=== PATIENT | female | born 1995 | race African-American/Black ===

== ENCOUNTER 2022-01-05 12:42 | Emergency (ER) | payer OTHER, SELFPAY ==
[2022-01-05 12:47] VITALS: BP 122/89; PULSE 73; RESP 18; TEMP 36.3; O2SAT 100
--- NOTE | 2022-01-05 13:05 | ECG_ITS ---
Measurements Intervals [place] Rate: 60 P: 49 OH: 171 QRS: 34 QRSD: 100 T: 17 QT: 413 QTc: 414 Interpretive Statements SINUS RHYTHM POSSIBLE RIGHT VENTRICULAR CONDUCTION DELAY [RSR (QR) IN V1/V2] NONSPECIFIC T-WAVE ABNORMALITY ABNORMAL ECG NO PREVIOUS ECG AVAILABLE FOR COMPARISON Electronically Signed On 01-06-2022 11:11:58 CDT by Branden Orourke M.D.
--- NOTE | 2022-01-05 13:20 | ED.DIZZY ---
HPI - Dizziness General Chief Complaint: Dizziness Stated Complaint: lightheaded Time Seen by Provider: 01/05/22 12:54 Source: patient History of Present Illness HPI Narrative: Patient presents with intermittent lightheadedness. She reports she first noticed her symptoms approximately 1 year ago had symptoms for couple days then resolved. Her symptoms have returned over the past few days. She mostly notes it when she is driving. She reports she recently saw the tenterer because she was having some blurry vision and was given a new prescription for glasses which has alleviated her symptoms to some degree but she gets some irritation around the bridge of her nose unsure if that was related to her lightheadedness. She currently feels lightheaded denies any chest pain or shortness of breath she denies any syncopal episodes she denies any significant family history of sudden cardiac . Denies any recent fevers, cough, congestion, nausea, diarrhea. Spouse reports her symptoms were relieved when she started taking vitamin B Related Data Allergies Allergy/AdvReac Type Severity Reaction Status Date / Time No Known Allergies Allergy Unverified 01/05/22 12:53 Review of Systems Review of Systems: CONSTITUTIONAL: Denies fever, chills, or sweats. EYES: Denies visual changes, redness, or discharge. ENT: Denies rhinorrhea, congestion, sore throat, or otalgia. CARDIOVASCULAR: Denies chest pain, palpitations, or edema. RESPIRATORY: Denies cough or dyspnea. GASTROINTESTINAL: Denies abdominal pain, nausea, vomiting, or diarrhea. GENITOURINARY: Denies dysuria or hematuria. SKIN: Denies rash or itching. MUSCULOSKELETAL: Denies back pain, joint pain, or myalgia. NEUROLOGIC: Denies headache, numbness, or weakness. PSYCHIATRIC: Denies anxiety or depression. All systems reviewed & are unremarkable except as noted in HPI and below PMFSH Past Medical History Medical History (Updated 01/05/22 @ 14:06 by Wesley Anderson MD) Patient denies medical problems Exam Narrative: GENERAL: Well-appearing, well-nourished, and in no acute distress. HEAD: Normocephalic, atraumatic. EYES: PERRLA and EOMI. ENT: Nares clear, no rhinorrhea or epistaxis. Mucous membranes moist. NECK: Supple. No masses. No JVD CHEST: Clear to auscultation. No respiratory distress. No wheezes rales or rhonchi HEART: Regular rate and rhythm. No murmur heard. Normal peripheral pulses. ABDOMEN: Soft, nontender, nondistended, normal active bowel sounds. EXTREMITIES: Normal range of motion. No edema. SKIN: Warm, dry, no rash. NEURO: Cranial nerves II through XII are intact patient has 5-5 strength in all extremities sensation intact light touch in all extremities alert and oriented x3. PSYCH: Normal mood and affect. Course Reevaluation(s) Reevaluation #1: Patient resting comfortably results and plan reviewed with patient. Patient is comfortable outpatient plan. Date: 01/05/22 Vital Signs Vital signs: Vital Signs Temperature 36.3 C L 01/05/22 12:47 Pulse Rate 73 01/05/22 12:47 Respiratory Rate 18 01/05/22 12:47 Blood Pressure 122/89 01/05/22 12:47 Pulse Oximetry 100 01/05/22 12:47 Temperature 36.3 C L 01/05/22 12:47 Pulse Rate 73 01/05/22 12:47 Respiratory Rate 18 01/05/22 12:47 Blood Pressure 122/89 01/05/22 12:47 Pulse Oximetry 100 01/05/22 12:47 MDM - Dizziness MDM Narrative Medical decision making narrative: H&P as above, vss, pt looks clinically well, exam without focal neurological deficits, labs with mild anemia otherwise clinically unremarkable, EKG without acute process, additional labs/img considered, symptomatic relief available as needed, on reevaluation pt continues to looks clinically well. Symptoms may be related to poor eyeglass prescription as she feels prescription is slightly off but has had some relief because her vision is somewhat better, dns intracranial hemorrhage, meningitis, electrolyte abnormality, ischemi
[2022-01-05 13:24] LABS: Basophils Percent Auto 0.4 % (0.2-1.2); Eosinophils Absolute Auto 0.1 K/mm3 (0-0.3); Hematocrit 34.7 % (37.0-47.0); Hemoglobin 10.9 g/dL (12.0-15.0); Immature Granulocyte Absolute 0.01 K/mm3 (0.00-0.031); Immature Granulocyte Percent A 0.2 % (0-0.5); Lymphocytes Absolute Auto 1.24 K/mm3 (0.9-3.2); Lymphocytes Percent Auto 24.3 % (18.3-44.2); Mean Corpuscular HGB Conc 31.4 g/dl (32-36); Mean Corpuscular Hemoglobin 27.9 pg (26-34); Mean Corpuscular Volume 88.7 fl (80-100); Mean Platelet Volume 11.4 fl (7.4-10.4); Monocytes Absolute Auto 0.4 K/mm3 (0.1-0.6); Monocytes Percent Auto 8.6 % (2.6-8.5); Neutrophils Absolute Auto 3.4 K/mm3 (1.3-6.7); Neutrophils Percent Auto 65.5 % (45.5-73.1); Platelet Count Result 175 k/mm3 (150-375); Red Blood Count 3.91 M/mm3 (4.2-5.4); Red Cell Distribution Width 12.7 % (11.5-14.5); White Blood Count 5.1 K/mm3 (4.5-10.0)
[2022-01-05 13:34] LABS: Alanine Aminotransferase 16 U/L (4-35); Albumin Level 4.2 g/dL (3.5-5.1); Alkaline Phosphatase 64 U/L (38-126); Anion Gap 4 mmol/L (8-16); Aspartate Amino Transferase 28 U/L (14-36); Bilirubin,Total 0.6 mg/dL (0.2-1.3); Blood Urea Nitrogen 7 mg/dL (7-17); Calcium 8.8 mg/dL (8.4-10.2); Carbon Dioxide 28 mmol/L (22-30); Chloride 105 mmol/L (98-107); Estimated CRCL calculation 116 ml/min; Estimated Glomerular Filt Rate > 60; Glucose 83 mg/dL (65-110); Potassium 3.8 mmol/L (3.4-5.0); Sodium 137 mmol/L (137-145)
[2022-01-05 14:39] LABS: Appearance Urine Clear (Clear); Bilirubin Urine Negative (Negative); Blood Urine Negative (Negative); Color Urine Yellow (Yellow); Glucose Urine UA Negative (Negative); Ketones Urine Negative (Negative); Leukocyte Esterase Ur Negative LEU/UL (Negative); Nitrate Urine Negative (Negative); Protein Urine Negative (Negative); Urobilinogen Urine 0.2 mg/dL (<2.0)
--- NOTE | 2022-01-05 14:42 | PC.NURSE ---
PT left prior to getting discharge paperwork.
[2022-01-05 14:48] LABS: RBC Urine 0-2 /hpf (0-2); Squamous Epithelial Cell Urine Rare /hpf (Few)
[2022-01-05 14:49] LABS: Add Urine Microscopic? YES
== END 2022-01-05 14:45 | disposition home or self-care (01) ==
PROVIDERS: Emergency Provider Emergency Medicine; PCP Internal Medicine Infectious Disease
DX: R42 Dizziness and giddiness (principal); R94.31 Abnormal electrocardiogram [ECG] [EKG]
CPT/HCPCS: 36415; 80053; 81001; 81025; 85025; 93005; 99283

== ENCOUNTER 2024-01-08 13:55 | Emergency (ER) | payer OTHER, SELFPAY ==
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
== END 2024-01-08 15:18 | disposition home or self-care (01) ==
LOC: ANHED 14:55
PROVIDERS: Emergency Provider Nurse Practitioner Family; PCP Internal Medicine Infectious Disease
DX: S13.9XXA Sprain of joints and ligaments of unspecified parts of neck, initial encounter (principal); V49.40XA Driver injured in collision with unspecified motor vehicles in traffic accident, initial encounter
CPT/HCPCS: 72040; 99283

== ENCOUNTER 2024-06-24 14:54 | Emergency (ER) | payer OTHER, SELFPAY ==
[2024-06-24 15:00] VITALS: BP 116/70; PULSE 71; RESP 20; TEMP 36.4; O2SAT 100
--- NOTE | 2024-06-24 15:03 | ED.DENTAL ---
HPI - Dental/Oral General Chief complaint: Dental/Oral Stated complaint: dental pain/sweeling Time Seen by Provider: 06/24/24 15:03 Source: patient Mode of arrival: ambulatory Limitations: no limitations History of Present Illness HPI Narrative: patient is a 29-year-old female who presents the ED with report of dental pain. Patient reports she had one of her L upper molars removed 2 days ago, tooth #4. Performed at [facility] in [place]. States since yesterday she has been having worsening pain and swelling. Has been taking ibuprofen without much relief. Denies nausea, vomiting, difficulty breathing or swallowing, fevers. Related Data Home Medications Medication Instructions Recorded Confirmed doxycycline hyclate 100 mg tablet 100 mg PO DAILY 12/17/22 12/18/22 fluconazole 150 mg tablet 150 mg PO DAILY 12/17/22 12/18/22 nystatin 100,000 unit/gram topical 1 applic topical BID 12/17/22 12/18/22 cream triamcinolone acetonide 0.1 % 1 applic topical BID 12/17/22 12/18/22 topical cream Allergies Allergy/AdvReac Type Severity Reaction Status Date / Time No Known Allergies Allergy Verified 06/24/24 15:04 Review of Systems Review of Systems: All systems reviewed & are unremarkable except as noted in HPI. All systems reviewed & are unremarkable except as noted in HPI and below PMFSH Past Medical History Medical History Bloating Patient denies medical problems Social History Social History Smoking status: Never smoker Second hand tobacco smoke exposure: No Alcohol use details: occasional Substance use: never Exam Narrative: GENERAL: Well appearing, obese with BMI of 32.2, non-toxic, in no acute distress. HEAD: Normocephalic, atraumatic. ENT: Dental extraction at tooth #4. Some inflammation of gumline surrounding extraction site. No obvious blood clot in site. No active bleeding. No focal fluctuance or drainage. No trismus or stridor. Maintaining secretions. RESPIRATORY: Airway patent, respirations nonlabored. CARDIOVASCULAR: Regular rate and rhythm MUSCULOSKELETAL: Moves all extremities. No gross deformities. SKIN: Warm, dry, normal color. NEURO: A&O X3. Speech clear. PSYCHIATRIC: Appropriate mood and affect. Normal interaction. Course Vital Signs Vital signs: Vital Signs Temperature 97.6 F 06/24/24 15:00 Pulse Rate 71 06/24/24 15:00 Respiratory Rate 20 06/24/24 15:00 Blood Pressure 116/70 06/24/24 15:00 Pulse Oximetry 100 06/24/24 15:00 Oxygen Delivery Room Air 06/24/24 15:00 Temperature 97.6 F 06/24/24 15:00 Pulse Rate 71 06/24/24 15:00 Respiratory Rate 20 06/24/24 15:00 Blood Pressure 116/70 06/24/24 15:00 Pulse Oximetry 100 06/24/24 15:00 Oxygen Delivery Room Air 06/24/24 15:00 MDM - Dental/Oral MDM Narrative Medical decision making narrative: Patient's pain is consistent with dental infection. There are no focal signs of space-occupying abscess. No active bleeding. The patient is controlling secretions well without signs of airway compromise. No systemic signs of infection. Patient is felt reasonable for outpatient follow-up with dental evaluation. Will start patient on Augmentin for likely dental infection. Discussed possibility of dry socket and management of such. Will prescribe short course of pain medicine as well as chlorhexidine mouthwash. Patient advised to follow closely with dentist for further evaluation. Given return precautions. Discharged in stable condition. Medical Records Attestation: I reviewed the patient's medical records. Discharge Plan Discharge Clinical Impression: Dental infection, Toothache Patient Disposition: Home, Self-Care Condition: Stable Instructions: Antibiotic Form, Toothache (ED), Dry Socket (ED) Additional Instructions:
== END 2024-06-24 15:44 | disposition home or self-care (01) ==
LOC: ANHED 15:37
PROVIDERS: Emergency Provider Physician Assistant
DX: K04.7 Periapical abscess without sinus (principal)
CPT/HCPCS: 99283